=== PATIENT | male | born 1970 | race Caucasian/White ===

== ENCOUNTER 2024-05-27 05:23 | Emergency (ER) | payer OTHER ==
[~2024-05-27] VITALS: Ht 177.8 cm; Wt 58.2 kg
[2024-05-27 05:34] VITALS: BP 131/90; PULSE 86; RESP 16; TEMP 97; O2SAT 95
[2024-05-27] MEDS ORDERED: BUSP10TA23 PO (07:56)
[2024-05-27] MEDS ORDERED: ATOR20TA65 PO (07:56)
[2024-05-27] MEDS ORDERED: BENZ-247 PO (07:56)
[2024-05-27] MEDS ORDERED: METF-1211 PO (07:56)
[2024-05-27] MEDS ORDERED: GABA-1181 PO (07:56)
[2024-05-27 08:45] LABS: BASOPHILS % (AUTO) 0.6 % (0.0-2.0); EOSINOPHILS % (AUTO) 1.8 % (1.0-6.0); HEMATOCRIT 42.4 % (41-53); HEMOGLOBIN 14.6 g/dL (13.5-17.5); LYMPHOCYTES # (AUTO) 1.6 K/uL (1.0-4.8); LYMPHOCYTES % (AUTO) 14.8 % (22.0-44.0); MEAN CORPUSCULAR HGB CONC 34.5 G/dL (31.0-37.0); MEAN CORPUSCULAR VOLUME 90 fL (80-100); MONOCYTES # (AUTO) 0.5 K/uL (0.1-1.0); MONOCYTES % (AUTO) 4.8 % (2.0-9.0); NEUTROPHILS # (AUTO) 8.3 K/uL (1.8-7.7); PLATELET COUNT (AUTO) 277 K/uL (150-450); RED BLOOD CELL COUNT(AUTO) 4.71 MIL/uL (4.50-5.90); RED CELL DISTRIBUTION WIDTH 13.3 % (11.5-14.5); WHITE BLOOD COUNT (AUTO) 10.7 K/uL (4.5-11.0)
[2024-05-27 08:55] LABS: ANION GAP 7 mmol/L (8-16); CALCIUM, TOTAL 9.1 mg/dL (8.8-10.5); CARBON DIOXIDE 26 mmol/L (22-29); CHLORIDE 104 mmol/L (98-107); CREATININE 1.17 mg/dL (0.60-1.30); GLOMERULAR FILTR. RATE CALC > 60 mL/min (>60); GLUCOSE,RANDOM 373 mg/dL (70-110); POTASSIUM 3.7 mmol/L (3.5-5.1); SODIUM SERUM 137 mmol/L (136-145); UREA NITROGEN, BLOOD 12 mg/dL (7-18)
[2024-05-27 08:59] LABS: ALANINE AMINOTRANSFERASE 37 U/L (12-78); ALBUMIN 3.4 g/dL (3.4-5.0); ALKALINE PHOSPHATASE 89 U/L (46-116); ASPARTATE AMINOTRANSFERASE 20 U/L (15-37); BILIRUBIN,TOTAL 0.6 mg/dL (0.1-1.0); TOTAL PROTEIN, SERUM 7.3 g/dL (6.4-8.2)
[2024-05-27] MEDS ORDERED: SODIUM CHLORIDE 0.9% 100 ML ONE (09:09)
[2024-05-27] MEDS ORDERED: IOHEXOL 350 MG/ML 100 ML VIAL ONE (09:09)
[2024-05-27] MEDS: INSULIN LISPRO 100 UNITS/ML SQ ONE (10:37)
[2024-05-27] MEDS: DICYCLOMINE HCL 10 MG CAPSULE PO ONE (11:25)
[2024-05-27] MEDS ORDERED: DICY-1 PO (12:03)
== END 2024-05-27 12:21 | disposition home or self-care (01) ==
LOC: EMS 05:25
DX: K52.9 Noninfective gastroenteritis and colitis, unspecified (principal); E11.65 Type 2 diabetes mellitus with hyperglycemia; I10 Essential (primary) hypertension; K62.89 Other specified diseases of anus and rectum; Z71.6 Tobacco abuse counseling
CPT/HCPCS: 99285; 74177; 80048; 80076; 82962; 85025; 36415; 96372; Q9967; J7050

== ENCOUNTER 2024-05-29 03:53 | Inpatient (IN) | payer OTHER ==
[~2024-05-29] VITALS: Ht 170.2 cm; Wt 74.0 kg
[~2024-05-29 03:53] MED LIST: ATOR20TA65 PO; BENZ-247 PO; BUSP10TA23 PO; DICY-1 PO; GABA-1181 PO; METF-1211 PO
[2024-05-29] MEDS: CIPROFLOXACIN 400 MG/D5% WATER 200 ML IV ONE (04:49)
[2024-05-29 05:22] LABS: BASOPHILS % (AUTO) 0.6 % (0.0-2.0); EOSINOPHILS % (AUTO) 5.8 % (1.0-6.0); HEMATOCRIT 37.7 % (41-53); HEMOGLOBIN 13.4 g/dL (13.5-17.5); LYMPHOCYTES # (AUTO) 1.6 K/uL (1.0-4.8); LYMPHOCYTES % (AUTO) 16.1 % (22.0-44.0); MEAN CORPUSCULAR HEMOGLOBIN 31.6 pg (26.0-34.0); MEAN CORPUSCULAR HGB CONC 35.7 G/dL (31.0-37.0); MEAN CORPUSCULAR VOLUME 89 fL (80-100); MONOCYTES # (AUTO) 0.6 K/uL (0.1-1.0); MONOCYTES % (AUTO) 6.3 % (2.0-9.0); NEUTROPHILS # (AUTO) 7.1 K/uL (1.8-7.7); NEUTROPHILS % (AUTO) 71.2 % (40.0-70.0); PLATELET COUNT (AUTO) 256 K/uL (150-450); RED BLOOD CELL COUNT(AUTO) 4.26 MIL/uL (4.50-5.90); RED CELL DISTRIBUTION WIDTH 13.3 % (11.5-14.5); WHITE BLOOD COUNT (AUTO) 9.9 K/uL (4.5-11.0)
[2024-05-29] MEDS ORDERED: IOHEXOL 350 MG/ML 100 ML VIAL ONE (05:27)
[2024-05-29] MEDS ORDERED: SODIUM CHLORIDE 0.9% 100 ML ONE (05:27)
[2024-05-29 05:53] LABS: CREATININE 1.28 mg/dL (0.60-1.30); POTASSIUM 3.1 mmol/L (3.5-5.1)
[2024-05-29 05:57] LABS: ALBUMIN 3.1 g/dL (3.4-5.0); BILIRUBIN,DIRECT 0.1 mg/dL (0.00-0.20); BILIRUBIN,TOTAL 0.6 mg/dL (0.1-1.0); TOTAL PROTEIN, SERUM 6.6 g/dL (6.4-8.2)
[2024-05-29] MEDS: MetroNIDAZOLE 500 MG/NACL 100 ML IV ONE (06:04)
[2024-05-29] MEDS: POTASSIUM CHLORIDE 20 MEQ ER TABLET PO ONE (06:11)
[2024-05-29] MEDS: SODIUM CHLORIDE 0.9% 1,000 ML IV ONE ×2 (06:11→16:13)
[2024-05-29 10:48] VITALS: BP 139/95; PULSE 77; RESP 18; TEMP 97.8; O2SAT 96
[2024-05-29] MEDS ORDERED: DEXTROSE 50%-WATER 25 GM/50 ML SYRINGE IVP PRN (15:30)
[2024-05-29] MEDS ORDERED: MORPHINE SULFATE 2 MG/ML SYRINGE IVP PRN (15:30)
[2024-05-29] MEDS ORDERED: ZOLPIDEM TARTRATE 5 MG TABLET PO PRN (15:30)
[2024-05-29] MEDS ORDERED: BISACODYL 10 MG RECTAL RECTAL SUPPOSITORY PR PRN (15:30)
[2024-05-29] MEDS ORDERED: MAGNESIUM HYDROXIDE SUSPENSION 30 ML UDCUP PO PRN (15:30)
[2024-05-29] MEDS ORDERED: ACETAMINOPHEN 325 MG TABLET PO PRN (15:30)
[2024-05-29 16:06] LABS: GLUCOMETER DEV NAME(LOC) ER.7; GLUCOSE,POINT OF CARE 287 MG/DL (70-110)
[2024-05-29] MEDS: HEPARIN SODIUM,PORCINE 5,000 UNITS/ML VIAL SQ SCH (16:13)
[2024-05-29] MEDS: CIPROFLOXACIN 400 MG/D5% WATER 200 ML IV SCH (16:14)
[2024-05-29] MEDS: MetroNIDAZOLE 500 MG TABLET PO SCH (16:15)
[2024-05-29] MEDS: HYDROCODONE/ACETAMINOPHEN 5-325 MG TABLET PO PRN (16:15)
[2024-05-29 16:39] VITALS: BP 139/95; PULSE 77; RESP 18; TEMP 97.8; O2SAT 97
[2024-05-29] MEDS: INSULIN LISPRO 100 UNITS/ML SQ PRN (17:00)
[2024-05-29 18:10] LABS: GLUCOMETER DEV NAME(LOC) 5S.1D; GLUCOSE,POINT OF CARE 218 MG/DL (70-110)
[2024-05-29] MEDS: DOCUSATE SODIUM 100 MG CAPSULE PO SCH (21:00)
[2024-05-29 21:35] VITALS: BP 121/82; PULSE 60; RESP 18; TEMP 97.6; O2SAT 98
[2024-05-30 00:50] LABS: GLUCOMETER DEV NAME(LOC) 6N.1B; GLUCOSE,POINT OF CARE 130 MG/DL (70-110)
[2024-05-30 03:21] LABS: COVID AG,FIA SOURCE NASAL SWAB
[2024-05-30 03:31] LABS: INFLUENZA TYPE A NEGATIVE FOR TYPE A (NEGATIVE); INFLUENZA TYPE B NEGATIVE FOR TYPE B (NEGATIVE)
[2024-05-30 03:38] LABS: SARS-COV2 (COVID) ANTIGEN,FIA Negative (Negative)
[2024-05-30 04:51] VITALS: BP 128/87; PULSE 59; RESP 18; TEMP 98; O2SAT 99
[2024-05-30 07:56] VITALS: BP 137/96; PULSE 60; RESP 17; TEMP 98.2; O2SAT 98
[2024-05-30] MEDS: BusPIRone HCL 10 MG TABLET PO SCH (08:02)
[2024-05-30] MEDS: BENZTROPINE MESYLATE 1 MG TABLET PO SCH (08:02)
[2024-05-30] MEDS: ATORVASTATIN CALCIUM 20 MG TABLET PO SCH (08:03)
[2024-05-30] MEDS: PANTOPRAZOLE SODIUM 40 MG DR TABLET PO SCH (08:03)
[2024-05-30 08:46] LABS: BASOPHILS % (AUTO) 2.1 % (0.0-2.0); EOSINOPHILS % (AUTO) 8.7 % (1.0-6.0); HEMATOCRIT 42.6 % (41-53); HEMOGLOBIN 15.1 g/dL (13.5-17.5); LYMPHOCYTES # (AUTO) 1.7 K/uL (1.0-4.8); LYMPHOCYTES % (AUTO) 33.1 % (22.0-44.0); MEAN CORPUSCULAR HEMOGLOBIN 31.3 pg (26.0-34.0); MEAN CORPUSCULAR HGB CONC 35.5 G/dL (31.0-37.0); MEAN CORPUSCULAR VOLUME 88 fL (80-100); MONOCYTES # (AUTO) 0.4 K/uL (0.1-1.0); MONOCYTES % (AUTO) 8.1 % (2.0-9.0); NEUTROPHILS # (AUTO) 2.5 K/uL (1.8-7.7); PLATELET COUNT (AUTO) 282 K/uL (150-450); RED BLOOD CELL COUNT(AUTO) 4.84 MIL/uL (4.50-5.90); RED CELL DISTRIBUTION WIDTH 13.4 % (11.5-14.5); WHITE BLOOD COUNT (AUTO) 5.2 K/uL (4.5-11.0)
[2024-05-30 08:54] LABS: ANION GAP 10 mmol/L (8-16); CALCIUM, TOTAL 8.5 mg/dL (8.8-10.5); CARBON DIOXIDE 28 mmol/L (22-29); CHLORIDE 107 mmol/L (98-107); CREATININE 0.96 mg/dL (0.60-1.30); GLOMERULAR FILTR. RATE CALC > 60 mL/min (>60); GLUCOSE,RANDOM 135 mg/dL (70-110); POTASSIUM 3.2 mmol/L (3.5-5.1); SODIUM SERUM 145 mmol/L (136-145); UREA NITROGEN, BLOOD 8 mg/dL (7-18)
[2024-05-30] MEDS ORDERED: POTASSIUM CHL 10 MEQ/WATER 50 ML IV PRN (14:30)
[2024-05-30 15:00] VITALS: BP 114/82; PULSE 64; RESP 18; TEMP 98.4; O2SAT 99
[2024-05-30] MEDS: POTASSIUM CHLORIDE 20 MEQ ER TABLET PO PRN (15:27)
[2024-05-30 16:36] LABS: GLUCOMETER DEV NAME(LOC) 4E.2; GLUCOSE,POINT OF CARE 178 MG/DL (70-110)
[2024-05-30] MEDS: SODIUM CHLORIDE 0.9% 1,000 ML IV ONE (16:37)
[2024-05-30 17:31] LABS: GLUCOMETER DEV NAME(LOC) 6N.1B; GLUCOSE,POINT OF CARE 151 MG/DL (70-110)
[2024-05-30 20:05] VITALS: BP 130/79; PULSE 69; RESP 17; TEMP 98.1; O2SAT 96
[2024-05-31] MEDS: ONDANSETRON HCL 4 MG/2 ML VIAL IVP PRN (02:57)
[2024-05-31 04:05] VITALS: BP 119/80; PULSE 61; RESP 18; TEMP 98.3; O2SAT 99
[2024-05-31 08:23] LABS: RED BLOOD CELL COUNT(AUTO) 5.06 MIL/uL (4.50-5.90); WHITE BLOOD COUNT (AUTO) 5.4 K/uL (4.5-11.0)
[2024-05-31 08:24] LABS: BASOPHILS % (AUTO) 0.2 % (0.0-2.0); EOSINOPHILS % (AUTO) 4.7 % (1.0-6.0); HEMATOCRIT 45.1 % (41-53); HEMOGLOBIN 15.9 g/dL (13.5-17.5); LYMPHOCYTES % (AUTO) 36.4 % (22.0-44.0); MEAN CORPUSCULAR HEMOGLOBIN 31.4 pg (26.0-34.0); MEAN CORPUSCULAR HGB CONC 35.3 G/dL (31.0-37.0); MEAN CORPUSCULAR VOLUME 89 fL (80-100); MONOCYTES # (AUTO) 0.4 K/uL (0.1-1.0); MONOCYTES % (AUTO) 7.3 % (2.0-9.0); NEUTROPHILS # (AUTO) 2.8 K/uL (1.8-7.7); NEUTROPHILS % (AUTO) 51.4 % (40.0-70.0); PLATELET COUNT (AUTO) 292 K/uL (150-450); RED CELL DISTRIBUTION WIDTH 13.2 % (11.5-14.5)
[2024-05-31 08:36] VITALS: BP 122/75; PULSE 68; RESP 17; TEMP 98.1; O2SAT 98
[2024-05-31 09:04] LABS: ANION GAP 8 mmol/L (8-16); CARBON DIOXIDE 26 mmol/L (22-29); CHLORIDE 106 mmol/L (98-107); CREATININE 1.03 mg/dL (0.60-1.30); GLOMERULAR FILTR. RATE CALC > 60 mL/min (>60); GLUCOSE,RANDOM 171 mg/dL (70-110); POTASSIUM 3.8 mmol/L (3.5-5.1); SODIUM SERUM 140 mmol/L (136-145); UREA NITROGEN, BLOOD 7 mg/dL (7-18)
[2024-05-31] MEDS ORDERED: CIPR500T10 PO (13:18)
[2024-05-31] MEDS ORDERED: METR500 PO (13:18)
[2024-05-31] MEDS ORDERED: ONDA-104 PO (13:18)
[2024-05-31 16:29] VITALS: BP 128/90; PULSE 76; RESP 18; TEMP 97.6; O2SAT 98
[2024-05-31 17:51] LABS: GLUCOMETER DEV NAME(LOC) 5S.1D; GLUCOSE,POINT OF CARE 151 MG/DL (70-110)
[2024-05-31 20:05] VITALS: BP 123/81; PULSE 83; RESP 18; TEMP 98.1; O2SAT 95
[2024-05-31 20:20] LABS: GLUCOMETER DEV NAME(LOC) 4E.2; GLUCOSE,POINT OF CARE 133 MG/DL (70-110)
[2024-05-31 21:30] LABS: GLUCOMETER DEV NAME(LOC) 5S.1D; GLUCOSE,POINT OF CARE 196 MG/DL (70-110)
[2024-06-01 04:39] VITALS: BP 105/73; PULSE 71; RESP 18; TEMP 97.9; O2SAT 98
[2024-06-01 05:56] LABS: GLUCOMETER DEV NAME(LOC) 6N.1B; GLUCOSE,POINT OF CARE 209 MG/DL (70-110)
[2024-06-01 06:35] LABS: GLUCOMETER DEV NAME(LOC) 5S.1D; GLUCOSE,POINT OF CARE 244 MG/DL (70-110)
[2024-06-01 08:37] LABS: BASOPHILS % (AUTO) 1.1 % (0.0-2.0); EOSINOPHILS % (AUTO) 6.2 % (1.0-6.0); HEMATOCRIT 41.6 % (41-53); HEMOGLOBIN 14.5 g/dL (13.5-17.5); LYMPHOCYTES # (AUTO) 1.7 K/uL (1.0-4.8); MEAN CORPUSCULAR HEMOGLOBIN 30.9 pg (26.0-34.0); MEAN CORPUSCULAR HGB CONC 34.8 G/dL (31.0-37.0); MEAN CORPUSCULAR VOLUME 89 fL (80-100); MONOCYTES # (AUTO) 0.4 K/uL (0.1-1.0); MONOCYTES % (AUTO) 9.8 % (2.0-9.0); NEUTROPHILS # (AUTO) 2.1 K/uL (1.8-7.7); NEUTROPHILS % (AUTO) 45.9 % (40.0-70.0); PLATELET COUNT (AUTO) 268 K/uL (150-450); RED BLOOD CELL COUNT(AUTO) 4.68 MIL/uL (4.50-5.90); RED CELL DISTRIBUTION WIDTH 13.4 % (11.5-14.5); WHITE BLOOD COUNT (AUTO) 4.5 K/uL (4.5-11.0)
[2024-06-01 08:47] LABS: ANION GAP 6 mmol/L (8-16); CALCIUM, TOTAL 8.7 mg/dL (8.8-10.5); CARBON DIOXIDE 27 mmol/L (22-29); CHLORIDE 104 mmol/L (98-107); CREATININE 1.01 mg/dL (0.60-1.30); GLOMERULAR FILTR. RATE CALC > 60 mL/min (>60); GLUCOSE,RANDOM 201 mg/dL (70-110); POTASSIUM 3.5 mmol/L (3.5-5.1); SODIUM SERUM 137 mmol/L (136-145); UREA NITROGEN, BLOOD 9 mg/dL (7-18)
[2024-06-01 09:48] VITALS: BP 140/101; PULSE 100; RESP 20; TEMP 97.7; O2SAT 100
[2024-06-01] MEDS ORDERED: BUSP10TA23 PO (14:19)
[2024-06-01] MEDS ORDERED: METF-1211 PO (14:19)
[2024-06-01 14:41] LABS: GLUCOMETER DEV NAME(LOC) 5S.1D; GLUCOSE,POINT OF CARE 297 MG/DL (70-110)
[2024-06-01 15:30] VITALS: BP 122/87; PULSE 71; RESP 20; TEMP 97.9; O2SAT 100; O2SAT 99
== END 2024-06-01 18:55 | disposition home or self-care (01) | DRG 249 ==
LOC: EMS 03:55 → EDH 06:12 → 4E 10:34
PROVIDERS: ADMIT Internal Medicine; ATTEND Internal Medicine
DX: K52.9 Noninfective gastroenteritis and colitis, unspecified (principal); E11.9 Type 2 diabetes mellitus without complications; E87.6 Hypokalemia; Z20.822 Contact with and (suspected) exposure to COVID-19; I10 Essential (primary) hypertension; E78.00 Pure hypercholesterolemia, unspecified; Z88.0 Allergy status to penicillin
CPT/HCPCS: 74177; 80048; 80076; 82962; 83690; 84132; 85025; 87804; 99285; G0378; J0744; J1644; J2405; J3490; J7050